=== PATIENT | female | born 1960 | race American Indian/Alaskan Native ===

== ENCOUNTER 2016-06-28 13:57 | Emergency (ER) | payer OTHER, MEDICAID ==
[2016-06-28 13:57] VITALS: BMI 54.3
[2016-06-28 14:06] VITALS: BP 154/85; PULSE 82; RESP 18; TEMP 98.3; O2SAT 100
[2016-06-28] MEDS ORDERED: Naproxen 550 mg Tab PO STA (14:21)
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
[2016-06-28] MEDS ORDERED: Naproxen 550 mg Tab PO ONE (14:29)
== END 2016-06-28 14:31 | disposition home or self-care (01) ==
LOC: C.ER 13:57
DX: S46.911A Strain of unspecified muscle, fascia and tendon at shoulder and upper arm level, right arm, initial encounter (principal); V89.2XXA Person injured in unspecified motor-vehicle accident, traffic, initial encounter